=== PATIENT | male | born 1960 | race Caucasian/White ===

== ENCOUNTER 2025-10-31 16:57 | Emergency (ER) | payer OTHER ==
[~2025-10-31] VITALS: Ht 182.8 cm; Wt 77.1 kg
[~2025-10-31 16:57] MED LIST: CORDROL20 MG PO; DAYPRO600 M1 PO; PREDNICOT20 MG PO; PROAIR HFA0.09 MG/AC IH; PROVENTIL0.09 MG/A1 IH; ROBAXIN750 MG PO; ZITHROMAX Z PA250 MG PO; ZITHROMAX250 MG PO
[2025-10-31] MEDS ORDERED: Lidocaine Hydrochloride 10 ML SYR UR ONE (17:55)
== END 2025-10-31 18:28 | disposition home or self-care (01) ==
LOC: ED 16:57
DX: R33.9 Retention of urine, unspecified (principal); R03.0 Elevated blood-pressure reading, without diagnosis of hypertension; Z87.891 Personal history of nicotine dependence; Z91.030 Bee allergy status